=== PATIENT | male | born 1975 | race Caucasian/White ===

== ENCOUNTER 2018-10-17 23:43 | Emergency (ER) | payer SELFPAY ==
[~2018-10-17] VITALS: Ht 172.7 cm; Wt 76.9 kg
[2018-10-17 23:47] VITALS: Ht 172.7 cm; Wt 76.9 kg
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
[2018-10-18] MEDS ORDERED: HYDR-4011 PO (03:51)
[2018-10-18] MEDS ORDERED: IBUP-1561 PO (03:51)
[2018-10-18 03:57] VITALS: BP 138/89; PULSE 82; RESP 16
== END 2018-10-18 03:57 | disposition home or self-care (01) ==
LOC: FTE 23:43
DX: S00.531A Contusion of lip, initial encounter (principal); Y04.8XXA Assault by other bodily force, initial encounter
CPT/HCPCS: 99283